=== PATIENT | female | born 1970 | race Caucasian/White ===

== ENCOUNTER → 2023-07-01 08:05 | Outpatient (REF) | payer OTHER, SELFPAY | LOC: DHCBS HW 08:05 | PROVIDERS: ATTENDING PHYSICIAN Internal Medicine Cardiovascular Disease; FAMILY PHYSICIAN Family Medicine | DX: R06.02 Shortness of breath (principal) | CPT/HCPCS: 93306 ==

== ENCOUNTER → 2023-08-15 16:19 | Outpatient (REF) | payer OTHER, SELFPAY | LOC: HWWDC 16:19 | PROVIDERS: ATTENDING PHYSICIAN Obstetrics & Gynecology; FAMILY PHYSICIAN Nurse Practitioner Family | DX: Z12.31 Encounter for screening mammogram for malignant neoplasm of breast (principal) | CPT/HCPCS: 77063; 77067 ==

== ENCOUNTER → 2024-08-19 14:47 | Outpatient (REF) | payer OTHER, SELFPAY | LOC: HWWDC 14:47 | PROVIDERS: ATTENDING PHYSICIAN Obstetrics & Gynecology; FAMILY PHYSICIAN Nurse Practitioner Family | DX: Z12.31 Encounter for screening mammogram for malignant neoplasm of breast (principal) | CPT/HCPCS: 77063; 77067 ==